=== PATIENT | female | born 1990 | race Caucasian/White ===

== ENCOUNTER → 2017-04-01 | Outpatient (CLI) | payer BC ==
[~2017-04-01] MED LIST: MTR600X PO; OXYC5TAB PO; PRENTAB26 PO
[2017-04-01 14:23] LABS: URINE APPEARANCE CLEAR (CLEAR); URINE BILIRUBIN NEG (NEG); URINE COLOR YELLOW; URINE NITRITE NEG (NEG); URINE PH 6.5 (4.5-7.5); URINE SPECIFIC GRAVITY 1.018 (1.000-1.030); UROBILINOGEN NEG (NEG)
[2017-04-01 14:39] LABS: MANUAL MICROSCOPIC REQUIRED? NO; REVIEW REQ? NO
[2017-04-05 07:27] LABS: CHLAMYDIA TRACH RNA*** NOT DETECTED (NOT DETECTED); GC (NEIS GONORRHOEAE)RNA** NOT DETECTED (NOT DETECTED)
== END | disposition home or self-care (01) ==
LOC: C.LABSPEC 14:32
PROVIDERS: ATTEND Obstetrics & Gynecology
DX: Z34.81 Encounter for supervision of other normal pregnancy, first trimester (principal)

== ENCOUNTER → 2017-05-07 | Outpatient (CLI) | payer BC ==
[2017-05-07 12:22] LABS: BASO % 0.1 %; BASO ABS # 0.01 K/uL (0-0.2); COMPLETE YES; EOS % 0.2 %; HEMATOCRIT 40.9 % (37-47); IG% 0.4 %; LYMPH % 11.3 %; LYMPH ABS # 1.18 K/uL (1.2-3.4); MEAN CELL VOLUME 83.3 fL (80-100); MEAN CORPUSCULAR HEMOGLOBIN 27.9 pg (25-34); MEAN CORPUSCULAR HGB CONC 33.5 g/dl (32-36); MEAN PLATELET VOLUME 10.6 fL (7.4-10.4); MONO % 6.5 %; NEUT % 81.5 %; PLATELET COUNT 301 K/uL (130-400); RED BLOOD COUNT 4.91 M/uL (4.2-5.4)
== END | disposition home or self-care (01) ==
LOC: C.LAB1850 10:35
PROVIDERS: ATTEND Obstetrics & Gynecology
DX: Z34.81 Encounter for supervision of other normal pregnancy, first trimester (principal)

== ENCOUNTER → 2017-06-07 | Outpatient (CLI) | payer BC ==
[2017-06-07 12:47] LABS: GTGD 50 Grams
== END | disposition home or self-care (01) ==
LOC: C.LAB1850 08:42
PROVIDERS: ATTEND Obstetrics & Gynecology
DX: Z34.82 Encounter for supervision of other normal pregnancy, second trimester (principal)

== ENCOUNTER → 2017-08-30 | Outpatient (CLI) | payer BC ==
[2017-08-30 13:18] LABS: HEMATOCRIT 37.3 % (37-47)
[2017-08-30 13:47] LABS: GTGD 50 Grams
[2017-08-30 15:06] LABS: URINE APPEARANCE CLEAR (CLEAR); URINE BILIRUBIN NEG (NEG); URINE COLOR YELLOW; URINE EPITHELIAL CELL AUTO >30 /lpf (0-5); URINE NITRITE NEG (NEG); UROBILINOGEN NEG (NEG)
[2017-08-30 15:10] LABS: MANUAL MICROSCOPIC REQUIRED? NO; REVIEW REQ? NO
== END | disposition home or self-care (01) ==
LOC: C.LAB1850 11:58
PROVIDERS: ATTEND Obstetrics & Gynecology
DX: Z34.83 Encounter for supervision of other normal pregnancy, third trimester (principal); Z3A.00 Weeks of gestation of pregnancy not specified

== ENCOUNTER → 2017-10-20 | Outpatient (CLI) | payer OTHER | END | disposition home or self-care (01) | LOC: C.LABSPEC 16:02 | PROVIDERS: ATTEND Obstetrics & Gynecology | DX: Z34.83 Encounter for supervision of other normal pregnancy, third trimester (principal) ==

== ENCOUNTER 2017-11-12 05:42 | Inpatient (IN) | payer BC, OTHER ==
--- NOTE | 2017-10-29 14:40 | HISTORY & PHYSICAL EXAMINATION ---
DATE OF ADMISSION: 11/12/2017 CHIEF COMPLAINT: Scheduled repeat section. HISTORY OF PRESENT ILLNESS: The patient is a 27-year-old G2, P1-0-0-1 at 39 weeks 2 days gestation with a history of section x1 for failure to dilate. is otherwise uncomplicated. PAST MEDICAL HISTORY: History of diverticulitis, had a flare up after her prior and was treated, has been recommended to continue probiotics in the immediate postsurgical period to ensure normal gut john. PAST SURGICAL HISTORY: Left breast cyst, section, wisdom teeth, and colonoscopy. ALLERGIES: PENICILLIN. The patient has no actual known reaction. Just she thinks a family history. MEDICATIONS: vitamins. SOCIAL HISTORY: Denies tobacco, alcohol or drug use. FAMILY HISTORY: Father with skin cancer and maternal grandfather with diabetes. REVIEW OF SYSTEMS: All reviewed and negative except as described above. PHYSICAL EXAMINATION: VITAL SIGNS: Blood pressure 128/78, weight 200.8. heart rate 138. GENERAL: Awake, alert and oriented x3, no acute distress. CARDIOVASCULAR: Regular rate and rhythm. S1 and S2. No murmurs, gallops or rubs. LUNGS: Clear to auscultation bilaterally. ABDOMEN: Gravid, soft, nontender. EXTREMITIES: No edema, no calf tenderness. LABORATORY DATA: Blood type O positive, rubella immune, screening for infectious disease is negative. Declined cystic fibrosis testing. Early 1-hour glucose test 113. Anatomy ultrasound completed on 07/05/2017 was complete with an echogenic focus in the left ventricle of the heart. Declined quad screen. A 28-week 1-hour Glucola 102. Group B strep negative. ASSESSMENT: 1. A 27-year-old G2, P1-0-0-1 at 39 weeks 2 days. 2. History of section x1, desires repeat. 3. History of diverticulitis. PLAN: Repeat section.
--- NOTE | 2017-10-29 15:33 | PAT Medication Instructions ---
Service Date Oct 29, 2017. Current Home Medication List Multivit/Min/Iron/Fol Ac/Pren ( Vitamin), 1 TAB PO QAM Saccharomyces Boulardii (Probiotic), 1 CAP PO QAM Medication Instructions For Your Scheduled Surgery - Hold the following medications the morning of surgery: Multivit/Min/Iron/Fol Ac/Pren ( Vitamin), 1 TAB PO QAM Saccharomyces Boulardii (Probiotic), 1 CAP PO QAM If you have any questions please call us at [phone] or [phone] or [phone]
[2017-10-29 15:39] LABS: BASO % 0.2 %; BASO ABS # 0.02 K/uL (0-0.2); EOS % 0.3 %; EOS ABS # 0.04 K/uL (0-0.5); HEMATOCRIT 36.2 % (37-47); HEMOGLOBIN 12.3 g/dL (12.0-16.0); IG# 0.13 K/uL (0.00-0.02); LYMPH % 14.1 %; LYMPH ABS # 1.73 K/uL (1.2-3.4); MEAN CELL VOLUME 82.1 fL (80-100); MEAN CORPUSCULAR HEMOGLOBIN 27.9 pg (25-34); MONO % 11.3 %; MONO ABS # 1.38 K/uL (0.11-0.59); NEUT ABS # 8.96 K/uL (1.4-6.5); PLATELET COUNT 171 K/uL (130-400); RED CELL DISTRIBUTION WIDTH CV 13.1 % (11.5-14.5); RED CELL DISTRIBUTION WIDTH SD 39.7 fL (36.4-46.3); WHITE BLOOD COUNT 12.26 K/uL (4.8-10.8)
[2017-11-11 00:30] VITALS: O2SAT 97
[~2017-11-12] VITALS: Ht 165.1 cm; Wt 91.8 kg
[2017-11-12] VITALS (15 sets, daily range): BP systolic 116–139; BP diastolic 72–87; PULSE 56–86; TEMP 36.5–37; O2SAT 95–98; Ht 165.1 cm; Wt 91.8 kg
[~2017-11-12 05:42] MED LIST changes: -MTR600X PO; -OXYC5TAB PO; +SACC250C11 PO
[2017-11-12] MEDS ORDERED: CITRIC ACID/SODIUM CITRATE 15 ML UDC PO SCH (06:00)
[2017-11-12] MEDS ORDERED: CEFAZOLIN IV 2,000 MG in SYRINGE 0 ML IV SCH (06:00)
[2017-11-12] MEDS ORDERED: LACTATED RINGER'S 1000ML 1,000 ML IV SCH ×2 (06:00→09:02)
[2017-11-12 06:12] LABS: BASO % 0.2 %; BASO ABS # 0.03 K/uL (0-0.2); EOS % 0.6 %; EOS ABS # 0.07 K/uL (0-0.5); HEMATOCRIT 37.7 % (37-47); HEMOGLOBIN 12.8 g/dL (12.0-16.0); IG# 0.11 K/uL (0.00-0.02); LYMPH % 23.1 %; LYMPH ABS # 2.85 K/uL (1.2-3.4); MEAN CELL VOLUME 81.3 fL (80-100); MEAN CORPUSCULAR HEMOGLOBIN 27.6 pg (25-34); MEAN PLATELET VOLUME 11.8 fL (7.4-10.4); MONO % 8.7 %; MONO ABS # 1.07 K/uL (0.11-0.59); NEUT % 66.5 %; NEUT ABS # 8.23 K/uL (1.4-6.5); PLATELET COUNT 197 K/uL (130-400); RED CELL DISTRIBUTION WIDTH CV 13.5 % (11.5-14.5); RED CELL DISTRIBUTION WIDTH SD 39.9 fL (36.4-46.3); WHITE BLOOD COUNT 12.36 K/uL (4.8-10.8)
--- NOTE | 2017-11-12 07:11 | History & Physical Bridge Note ---
H&P Re-Evaluation Bridge Note: I have examined the patient, reviewed the History & Physical and in the interval since the performance of the History & Physical I have noted the following changes of clinical significance: No changes noted
[2017-11-12] MEDS ORDERED: MoRPHine SULFATE PF 1 MG/ML 10 ML AMP/VIAL ONE (07:26)
[2017-11-12] MEDS ORDERED: FENTANYL CITRATE INJ 50 MCG/1 ML 2 ML VIAL ONE (07:26)
[2017-11-12] MEDS ORDERED: ONDANSETRON INJ 2 MG/ML 2 ML VIAL ONE (07:26)
[2017-11-12] MEDS ORDERED: KETOROLAC TROMETHAMINE 30 MG/ML VIAL ONE (08:06)
[2017-11-12] MEDS ORDERED: PHENYLEPHRINE 100MCG/ML 5ML SYR ONE (08:06)
[2017-11-12] MEDS ORDERED: OXYTOCIN INJ 10 UNITS/ML VIAL ONE ×4 (08:06→08:34)
--- NOTE | 2017-11-12 08:28 | [facility] Post Operative Brief Note ---
Immediate Operative Summary Operative Date Nov 12, 2017. Pre-Operative Diagnosis Term iup, prior section, desires repeat section Post-Operative Diagnosis same Procedure(s) Performed Repeat Low Transverse Section Surgeon Cynthia Project Engineering Manager Surgeon(s) Vernon Estimated Blood Loss 600 Findings See Below (viable female apgars 8,9; normal uterus tubes and ovaries bilateral) see above Fluids (cc crystalloids) 1600 Specimens placenta, cord blood Drains rivero Anesthesia Type Spinal Complication(s) none Disposition Accompanied Pt To Recover: no Disposition: L&D
[2017-11-12] MEDS ORDERED: NALOXONE HCL INJ 1 MG in SODIUM CHLORIDE 0.9% 1000ML 1,000 ML IV PRN (08:56)
[2017-11-12] MEDS ORDERED: NALOXONE HCL INJ 0.08 MG in SYRINGE 1.8 ML IV PRN (08:56)
[2017-11-12] MEDS ORDERED: SODIUM CHLORIDE 0.9% 1000ML 1,000 ML IV PRN (08:56)
[2017-11-12] MEDS ORDERED: LACTATED RINGER'S 1000ML 500 ML IV PRN (08:56)
[2017-11-12] MEDS ORDERED: EpHEDrine SULFATE INJ 50 MG/ML AMP IV PRN (09:00)
[2017-11-12] MEDS ORDERED: DC INTRASPINAL MORPHINE SCH (09:00)
[2017-11-12] MEDS ORDERED: KETOROLAC TROMETHAMINE 30 MG/ML VIAL IV. PRN (09:00)
[2017-11-12] MEDS ORDERED: NO NARCOTICS OR SEDATIVES SCH (09:00)
[2017-11-12] MEDS ORDERED: MoRPHine SULFATE PF 1 MG/ML 10 ML AMP/VIAL EPI PRN (09:00)
[2017-11-12] MEDS ORDERED: NALBUPHINE HCL INJ 10 MG/ML AMP IV PRN (09:00)
[2017-11-12] MEDS ORDERED: PROMETHAZINE HCL INJ 6.25 MG in SODIUM CHLORIDE 0.9% 50ML 50 ML IV PRN (09:00)
[2017-11-12] MEDS ORDERED: ONDANSETRON INJ 2 MG/ML 2 ML VIAL IV PRN (09:00)
[2017-11-12] MEDS ORDERED: MoRPHine SULFATE 2 MG/ML CARP IV PRN (09:00)
[2017-11-12] MEDS ORDERED: NALOXONE HCL 0.4 MG/1 ML VIAL/CARP IV PRN (09:00)
[2017-11-12] MEDS ORDERED: DiphenhydrAMINE HCL 50 MG/ML VIAL IV PRN ×2 (09:00)
[2017-11-12] MEDS ORDERED: MEPERIDINE HCL 25 MG/ML CARP IV PRN (09:00)
--- NOTE | 2017-11-12 09:11 | Discharge Instructions ---
Discharge Instructions Date of Service Nov 12, 2017. Admission Reason for Admission: Previous Section, Ante Discharge Discharge Diagnosis / Problem: Repeat Section Discharge Goals Goal(s): Routine recovery after Medications Continue Dispensed Medications: supercream, dermaplast, tucks, lansinoh Activity Recommendations Activity Limitations: per Instructions/Follow-up section . Instructions / Follow-Up Instructions / Follow-Up ACTIVITY RECOMMENDATIONS: * Gradual return to full activity over the next 2-3 weeks. * No lifting - nothing heavier than baby over the next 2-3 weeks. * Do not engage in vigorous exercise, sexual activity or sports until cleared by your physician. * Do not drive or operate any motorized equipment until cleared by your physician. * You may shower/bathe daily. MEDICATIONS: For discomfort or pain, you may use Acetaminophen (Tylenol), Ibuprofen (Advil), or Naproxen (Aleve) following the package directions. For constipation you may use Colace following the package directions. BREAST CARE: If you are not breast feeding: * Wear a supportive bra 24 hours a day for one to two weeks. * Avoid stimulating your breasts and nipples as much as possible during the first few weeks after delivery. * When taking a shower, have the warm water hit your back, not breasts. * When your breasts feel full, apply ice packs. Usually three to four times a day helps ease the discomfort. * Take a mild pain medication (Tylenol / Motrin) when you are uncomfortable. If breast feeding: * Use breast milk to lubricate nipples. Lansinoh cream may be used for sore nipples. You do not need to remove cream prior to breast feeding. If using a different brand of cream, check the label for directions regarding removal of cream prior to nursing. * Wear a supportive bra. * If having problems with breasts or breast feeding, call a application packaging consultant or your health care provider. SPECIAL CARE INSTRUCTIONS: When you are discharged from the hospital, it is important for you to follow the instructions listed below: * During the first week at home, you should be able to care for yourself and your baby. In addition, the usual light household activities are encouraged. * Limit your activities to the way you feel. Do not try to clean the house or move furniture. Be sensible. * If you actively engage in sports and have done so up until the time of your delivery, you may resume these activities as soon as you feel able. This may take up to one month or even longer. Use good judgment. * Continue to take your vitamins for at least six weeks after the of your baby. * Your diet need not be limited unless you were on a special diet before your delivery. Breast-feeding mothers need around 2500 calories per day and at least 64-80 ounces of fluid per day (8 to 10 glasses). * You should eat foods from the four major food groups. Crash diets or fad diets are to be avoided. Eating lean meats, fresh fruits and vegetables, low-fat dairy products, high fiber foods and a regular exercise program, will help you get back to your pre- weight without putting your health at risk. * Constipation is sometimes a problem after delivery. Take a mild laxative as needed. If breast feeding, Milk of Magnesia is acceptable to use. You may use a suppository or Fleets enema. * A daily shower or tub bath is suggested. Wash incision daily with warm soapy water and pat dry. It doesn't need to be covered unless drainage is present. * A bloody vaginal discharge will usually continue until around four weeks . A small amount of bleeding may continue for as long as six weeks. Vaginal discharge changes from the bright red bleeding after delivery to pink then brownish and finally yellowish-pink before becoming white and disappearing. * Bleeding may increase with activity. Your first period may come in 4-8 weeks. If you are breast feeding, your period may be delayed even longer. * Eland (sex) can begin whenever both you and your partner feel comfortable and do not have any form of genital infection. It is recommended that you wait at least six weeks for internal and external healing to occur. If you have questions, please talk to your health care practitioner. A condom should be used to prevent infection and . * Foreplay, gentle intercourse and lubrication is very important the first several times to prevent pain. A water-based lubricant such as K-Y jelly or Astroglide may be used. * If you have RH negative blood and your baby is RH positive, you will receive RHOGAM by injection prior to discharge. The nurse will give you a card to keep with you that has the date and place that you received RHOGAM after delivery. * During your care, you had a Rubella screen done to check for the presence of rubella antibodies in your blood. If your test was negative, you will receive a Rubella vaccine prior to discharge. This vaccine may cause a fever, soreness at the injection site and flu-like symptoms. If these symptoms persist, notify your health care practitioner. is not advised for one month after a Rubella vaccine. * Verbalizes understanding of car seat law as reviewed with patient nursing. * Car Seat hand-out given and reviewed with patient by nursing. * Shaken baby information reviewed with patient by nursing. Call you doctor if: * Heavy bleeding (saturating several pads an hour) or passing clots the size of your fist. * A fever >101 degrees F (38.3 degrees C) on two occasions four hours apart and /or chills. * Unusual pain in the pelvic or vaginal areas. * Call the doctor for any increased redness, drainage or swelling around the incision and any pain unrelieved by prescribed pain medication. * "Baby Blues" lasting longer than two weeks. If you have any questions or concerns, call your health care practitioner at . FOLLOW UP VISIT: * Please call the office at to schedule a 6 week examination. It is important you keep this appointment. It is important for you to make arrangements for either yearly or twice yearly check-ups thereafter. Current Hospital Diet Patient's current hospital diet: Discharge Diet Recommended Diet: Regular Diet Procedures Procedures Performed: Repeat Low Transverse Section Pending Studies Studies pending at discharge: no Medical Emergencies . Who to Call and When: Medical Emergencies: If at any time you feel your situation is an emergency, please call [phone] immediately. . Non-Emergent Contact Non-Emergency issues call your: Primary Care Provider . . "Provider Documentation" section prepared by Artemio David. . VTE Core Measure Inpt VTE Proph given/why not?: SCD's
[2017-11-12] MEDS ORDERED: MAGNESIUM HYDROXIDE SUSP 30 ML UDC PO PRN (09:15)
[2017-11-12] MEDS ORDERED: SUPERCREAM 0.870 % 15GM JAR EXT PRN (09:15)
[2017-11-12] MEDS ORDERED: HYDROCORTISONE ACETATE 25 MG SUPP PR PRN (09:15)
[2017-11-12] MEDS ORDERED: BENZOCAINE 20% AER SPR 82.5 GM CAN EXT PRN (09:15)
[2017-11-12] MEDS ORDERED: DIPHTHERIA/TETANUS/PERTUSSIS 0.5 ML SYR/VIAL IM. ONE (09:15)
[2017-11-12] MEDS ORDERED: LANOLIN OINT EXT PRN (09:15)
[2017-11-12] MEDS ORDERED: SENNA 8.6 MG TAB PO PRN (09:15)
--- NOTE | 2017-11-12 09:23 | OPERATIVE REPORT ---
DATE OF OPERATION: 11/12/2017 PREOPERATIVE DIAGNOSES: 1. Term intrauterine . 2. History of section x1. 3. Desires repeat section. 4. History of diverticulitis. POSTOPERATIVE DIAGNOSES: Same. PROCEDURES PERFORMED: Repeat low transverse section. SURGEON: Penny Marie DO. ACUTE CARE PHYSICIAN: Ani Junior MD. ESTIMATED BLOOD LOSS: 600 Ml. FINDINGS: Viable female with Apgars 8 and 9. Uterus, tubes, and ovaries appeared normal. FLUIDS: 1600 mL. SPECIMENS: Placenta and cord blood. DRAINS: Ordoñez, clear yellow and catheter at conclusion of case. ANESTHESIA: Spinal. COMPLICATIONS: None. DISPOSITION: Stable and good to labor and delivery. INDICATIONS FOR PROCEDURE: The patient is a 27-year-old G2, P1-0-0-1 at term with history of section x1 who desires repeat. DESCRIPTION OF PROCEDURE: The patient was seen in the preoperative holding area where risks, benefits, alternatives to surgery were reviewed. She elected to proceed with the case. She had previously signed an informed consent under no duress in the office. All questions were answered. The patient was taken to the operating room where spinal anesthesia was administered. She was then placed in the supine position with a leftward tilt. A Ordoñez catheter was placed. She was prepared and draped in the usual sterile fashion. A timeout was confirmed. Adequate anesthesia was confirmed. A Pfannenstiel skin incision was made with a scalpel across the previous incision site. This was carried through to the underlying layer of fascia in both sharp and blunt dissection. The fascia was nicked at midline and extended bilaterally sharply and bluntly. The superior aspect of the fascial incision was grasped with Agusto clamps x2, elevated off the underlying rectus abdominis muscles and dissected bluntly and sharply. In a similar fashion, the inferior aspect of the incision was dissected. The rectus abdominis muscles were at midline and the peritoneum was entered bluntly digitally. Bladder blade was placed. This incision was extended bilaterally with blunt dissection. The bladder flap was taken down with Metzenbaum scissors. A new scalpel was used for the uterine incision. This incision was extended bilaterally in a low transverse fashion. The infant was delivered from a cephalic presentation. The head delivered, followed by bilateral shoulders and body. No nuchal cord was noted. A spontaneous cry was heard on the field. The cord was doubly clamped and cut. The baby was handed off to the waiting pediatrics team. A segment of cord was retained for cord gases. Cord blood was obtained. The placenta was delivered spontaneously intact with a 3-vessel cord. The uterus was exteriorized and cleaned of all clots and debris. The hysterotomy incision was reapproximated using 0 Vicryl in a running locked stitch. A second layer of the same suture was used to imbricate the incision. The posterior uterus was evaluated and found to be normal. The uterus was placed back in the abdomen and multiple [id number]-cb-[id number] stitches were used to obtain excellent hemostasis at the center of the hysterotomy. Excellent hemostasis was observed. The fascial incision was reapproximated using 0 Vicryl in a running stitch. The subcuticular tissue was irrigated and then reapproximated using 2-0 plain gut suture in a running stitch. The skin incision was reapproximated using 4-0 Monocryl in a running subcuticular stitch. Steri-Strips and a bandage were applied. The patient was taken to the recovery area in stable and good condition. I attest to the content of the Intraoperative Record and any orders documented therein. Any exception s are noted below.
[2017-11-12] MEDS ORDERED: OXYTOCIN INJ 20 UNITS in LACTATED RINGER'S 1000ML 1,000 ML IV SCH (10:00)
--- NOTE | 2017-11-12 10:54 | Anesthesiology Progress Note ---
Anesthesia Post Op Note Date & Time Nov 12, 2017 at 10:54 Notes Mental Status: alert / awake / arousable, participated in evaluation Pt Amnestic to Procedure: Yes Nausea / Vomiting: adequately controlled Pain: adequately controlled Airway Patency, RR, SpO2: stable & adequate BP & HR: stable & adequate Hydration State: stable & adequate Neuraxial Anesthesia: was administered, sensory block is resolving Anesthetic Complications: no major complications apparent
[2017-11-12] MEDS: IBUPROFEN 600 MG TAB PO PRN (12:03)
[2017-11-12] MEDS: SIMETHICONE 80 MG CHEW PO SCH ×2 (12:03→19:58)
[2017-11-12] MEDS: DOCUSATE SODIUM 100 MG CAP PO SCH (19:58)
[2017-11-13] VITALS (7 sets, daily range): BP systolic 103–123; BP diastolic 63–83; PULSE 62–77; TEMP 36.5–36.8; O2SAT 95–96
[2017-11-13] MEDS ORDERED: ZOLPIDEM TARTRATE 5 MG TAB PO PRN (02:00)
[2017-11-13] MEDS ORDERED: DiphenhydrAMINE HCL 50 MG/ML VIAL IV PRN (02:00)
[2017-11-13] MEDS ORDERED: ONDANSETRON INJ 2 MG/ML 2 ML VIAL IV PRN (02:00)
[2017-11-13] MEDS ORDERED: KETOROLAC TROMETHAMINE 30 MG/ML VIAL IV. PRN (02:00)
[2017-11-13] MEDS: OXYCODONE/ACETAMINOPHEN 5-325 TAB PO PRN ×6 (04:13→20:45)
[2017-11-13] MEDS: IBUPROFEN 600 MG TAB PO PRN ×5 (04:14→20:45)
--- NOTE | 2017-11-13 06:16 | Progress Note ---
Subjective Nov 13, 2017. Subjective conversation w/ patient (Patient seen and examined at bedside) Ambulation: ambulating normally Voiding: no voiding problems (rivero cath just removed - awaiting first void) Passing Gas: Yes Diet Tolerance: Regular Diet Lochia: Moderate Feeding Type: Breast Feeding Pain: 6/10 pain with ambulating on left side of incision and back Comment: Pain improved w/analgesia Review of Systems Constitutional: + problem reported (headache), No fever, No chills, No sweats Respiratory: No cough, No shortness of breath Cardiac: + problem reported ("heavy chest" - improving) Breast: No breast pain Abdomen: No pain, No nausea, No vomiting Female : No dysuria Also reports pain in calves - left worse than right Objective Vital Signs Date Time Temp Pulse Resp B/P (MAP) Pulse Ox O2 Delivery O2 Flow Rate FiO2 11/13/17 03:45 36.6 62 16 111/76 (88) 95 Room Air 11/13/17 02:23 16 96 11/13/17 01:28 16 96 11/12/17 23:40 Room Air 11/12/17 23:40 36.8 69 18 116/72 (87) 95 Room Air 11/12/17 23:40 18 95 11/12/17 23:10 17 96 11/12/17 22:00 18 95 11/12/17 21:00 18 97 11/12/17 20:00 97 Room Air 11/12/17 20:00 36.9 68 18 125/81 (96) 97 Room Air 11/12/17 20:00 18 97 11/12/17 19:00 18 97 11/12/17 18:15 18 97 11/12/17 17:15 18 96 11/12/17 16:15 16 95 11/12/17 16:05 97 Room Air 11/12/17 15:15 16 95 11/12/17 14:30 16 98 11/12/17 13:30 15 98 11/12/17 12:31 16 97 11/12/17 11:30 98 Room Air 11/12/17 11:30 16 98 11/12/17 11:30 36.5 56 16 139/87 (104) 98 Room Air Physical Exam General Appearance: WELL-APPEARING, WD/WN, NO APPARENT DISTRESS Respiratory/Chest: chest non-tender, lungs clear, normal breath sounds, no respiratory distress, no accessory muscle use Cardiovascular: regular rate, rhythm, no edema, no gallop, no murmur Abdomen: normal bowel sounds, non tender, soft Fundus: Firm, Tender, Relation to Umbilicus (1 below u) Incision Description: Clean, Dry & Intact Extremities: normal inspection, no pedal edema, + pertinent finding (right calf mildly tender to palpation, no erythema, no swelling, no warmth) Laboratory Results Last 24 Hours Test 11/13/17 06:00 Medications Current Inpatient Medications Medications (Trade) Dose Ordered Sig/Trina Route Start Time Stop Time Status Last Admin Dose Admin Morphine Sulfate (MoRPHine SULFATE INJ) 2 mg Q2H PRN IV 11/12/17 09:00 11/26/17 02:00 Oxytocin 20 units/ Lactated Ringer's 1,002 ml @ 125 mls/hr Q8H1M IV 11/12/17 10:00 12/12/17 09:59 11/12/17 10:07 125 MLS/HR Lactated Ringer's 1,000 ml @ 125 mls/hr Q8H IV 11/12/17 09:02 12/12/17 09:01 Ketorolac Tromethamine (Toradol Inj) 30 mg Q6H PRN IV. 11/13/17 02:00 11/18/17 01:59 Oxycodone/ Acetaminophen (Percocet 5-325mg Tab) 1 tab Q4H PRN PO 11/13/17 02:00 11/27/17 01:59 11/13/17 04:13 1 TAB Oxycodone/ Acetaminophen (Percocet 5-325mg Tab) 2 tab Q4H PRN PO 11/13/17 02:00 11/27/17 01:59 Ibuprofen (Motrin Tab) 600 mg Q4H PRN PO 11/12/17 09:15 12/12/17 09:14 11/13/17 04:14 600 MG Ondansetron HCl (Zofran Inj) 4 mg Q4H PRN IV 11/13/17 02:00 12/13/17 01:59 Bisacodyl (Dulcolax Tab) 5 mg HS ONCE PO 11/13/17 22:00 11/13/17 22:01 Bisacodyl (Dulcolax Supp) 10 mg PRN PRN OH 11/14/17 09:15 12/14/17 09:14 Docusate Sodium (coLACE CAP) 100 mg BID PO 11/12/17 20:00 12/12/17 19:59 11/12/17 19:58 100 MG Magnesium Hydroxide (Milk Of Magnesia Susp) 30 ml HS PRN PO 11/12/17 09:15 12/12/17 09:14 Cocaine HCl (Supercream 0.870% Cr) BID PRN EXT 11/12/17 09:15 11/26/17 09:14 Lanolin (Lanolin Oint) PRN PRN EXT 11/12/17 09:15 12/12/17 09:14 Hydrocortisone Acetate (Anusol Hc Supp) 25 mg BID PRN OH 11/12/17 09:15 12/12/17 09:14 Benzocaine (Dermoplast Aero Spr) 1 appln PRN PRN EXT 11/12/17 09:15 12/12/17 09:14 Zolpidem Tartrate (Ambien Tab) 5 mg HSZ PRN PO 11/13/17 02:00 12/13/17 01:59 Simethicone (Mylicon Chew Tab) 80 mg QID PO 11/12/17 12:00 12/12/17 12:59 11/12/17 19:58 80 MG Diphenhydramine HCl (Benadryl Cap) 25 mg QID PRN PO 11/12/17 09:15 12/12/17 09:14 Diphenhydramine HCl (Benadryl Inj) 25 mg QID PRN IV 11/13/17 02:00 12/13/17 01:59 Senna (Senokot Tab) 17.2 mg HS PRN PO 11/12/17 09:15 12/12/17 09:14 Prenat Multivit/ [place]/Iron/Folic Ac ( Vitamin Tab) 1 tab QAM PO 11/13/17 08:00 12/13/17 07:59 Saccharomyces Boulardii (Florastor Cap) 250 mg DAILY PO 11/13/17 08:00 12/13/17 07:59 Assessment and Plan Post-Op Day#: 1 Continue Routine Care: 27 year old [id number] s/p elective repeat day 1 - O+, rubella immune, GBS -ve - patient doing well clinically - continue encouraging ambulation, and analgesia prn - monitor lochia - continue SCDs for DVT prophylaxis - vitals reviewed and wnl - Hgb 12.8 on arrival, recheck ordered for today Resident Physician Supervision Note: I was present with Dr. David during the history and exam. I discussed the case with the resident and agree with the findings and plan as documented in the note. Any exceptions or clarifications are listed here: POD#1 s/p repeat c- section, doing well. Rivero out. Goals: ambulate, increase PO. Documented By: Penny Marie Resident Tracking Resident Involvement: Resident Care Provided Care Provided: OB Delivery
[2017-11-13 07:32] LABS: BASO % 0.1 %; BASO ABS # 0.01 K/uL (0-0.2); EOS % 0.3 %; EOS ABS # 0.03 K/uL (0-0.5); HEMATOCRIT 35.4 % (37-47); HEMOGLOBIN 11.8 g/dL (12.0-16.0); IG# 0.04 K/uL (0.00-0.02); LYMPH % 12.8 %; LYMPH ABS # 1.38 K/uL (1.2-3.4); MEAN CELL VOLUME 81.2 fL (80-100); MEAN CORPUSCULAR HEMOGLOBIN 27.1 pg (25-34); MEAN CORPUSCULAR HGB CONC 33.3 g/dl (32-36); MONO % 8.6 %; MONO ABS # 0.93 K/uL (0.11-0.59); NEUT % 77.8 %; NEUT ABS # 8.42 K/uL (1.4-6.5); PLATELET COUNT 160 K/uL (130-400); RED CELL DISTRIBUTION WIDTH CV 13.4 % (11.5-14.5); RED CELL DISTRIBUTION WIDTH SD 39.9 fL (36.4-46.3); WHITE BLOOD COUNT 10.81 K/uL (4.8-10.8)
[2017-11-13] MEDS: SACCHAROMYCES BOUL (FLORASTOR) 250 MG CAP PO SCH (08:35)
[2017-11-13] MEDS: PRENATAL VITAMIN TAB PO SCH (08:35)
[2017-11-13] MEDS: DOCUSATE SODIUM 100 MG CAP PO SCH ×2 (08:35→20:44)
[2017-11-13] MEDS: SIMETHICONE 80 MG CHEW PO SCH ×4 (08:35→20:45)
[2017-11-13] MEDS ORDERED: BISACODYL 5 MG TABEC PO ONE (22:00)
[2017-11-14] MEDS: OXYCODONE/ACETAMINOPHEN 5-325 TAB PO PRN ×2 (06:23→10:31)
[2017-11-14] MEDS: IBUPROFEN 600 MG TAB PO PRN ×2 (06:24→10:32)
[2017-11-14 07:51] LABS: HEMATOCRIT 36.3 % (37-47); HEMOGLOBIN 12.1 g/dL (12.0-16.0)
[2017-11-14] MEDS: PRENATAL VITAMIN TAB PO SCH (08:24)
[2017-11-14] MEDS: DOCUSATE SODIUM 100 MG CAP PO SCH (08:25)
[2017-11-14] MEDS: SACCHAROMYCES BOUL (FLORASTOR) 250 MG CAP PO SCH (08:25)
[2017-11-14] MEDS: SIMETHICONE 80 MG CHEW PO SCH (08:25)
[2017-11-14 08:35] VITALS: BP 128/77; PULSE 76; TEMP 36.4
[2017-11-14] MEDS ORDERED: BISACODYL 10 MG SUPP PR PRN (09:15)
--- NOTE | 2017-11-14 09:29 | Progress Note ---
Subjective Nov 14, 2017. Subjective conversation w/ patient, physical exam Ambulation: ambulating normally Voiding: no voiding problems Diet Tolerance: Regular Diet Lochia: Small Feeding Type: Bottle Feeding Pain: good pain control, having some left sided tenderness Comment: has h/o diverticulitis and does sometimes present on left side with tenderness but she is unsure if just sore from surgery as well. not as severe as she has had in past with her diverticulitis presentation. Objective Vital Signs Date Time Temp Pulse Resp B/P (MAP) Pulse Ox O2 Delivery O2 Flow Rate FiO2 11/14/17 08:35 36.4 76 18 128/77 (94) Room Air 11/14/17 08:35 Room Air 11/13/17 23:15 36.5 68 16 103/63 (76) Room Air 11/13/17 23:15 Room Air 11/13/17 19:00 Room Air 11/13/17 19:00 36.6 77 20 122/77 (92) Room Air 11/13/17 15:50 36.8 72 20 123/83 (96) Physical Exam General Appearance: WELL-APPEARING, WD/WN, NO APPARENT DISTRESS Respiratory/Chest: lungs clear Cardiovascular: regular rate, rhythm Abdomen: non tender, soft Fundus: Firm, Relation to Umbilicus (3 down) Incision Description: Clean, Dry & Intact (with steris) Extremities: non-tender Laboratory Results Last 24 Hours Test 11/14/17 07:16 Hemoglobin 12.1 g/dL Hematocrit 36.3 % Assessment and Plan Post-Op Day#: 2 Continue Routine Care: stable, routine care. desires d/c home. instructions reviewed. f/u 6 wks. plan po percocet and motrin and transition to tylenol. discussed her diverticulitis history. she is sure she wants to go home and hope that does not present. she has been dealing with diagnoses since she was 23yo.
[2017-11-14] MEDS ORDERED: OXYC-57 PO (09:30)
[2017-11-14] MEDS ORDERED: MTR600X PO (09:30)
[2017-11-14 11:18] VITALS: BP_DIAS 77; PULSE 76; TEMP 36.4
== END 2017-11-14 11:30 | disposition home or self-care (01) | DRG 766 ==
LOC: C.LD 05:42 → EDSTATUS 09:00 → C.OBG 11:29
PROVIDERS: ADMIT Obstetrics & Gynecology; ATTEND Obstetrics & Gynecology
PROC: 10D00Z1 Extraction of Products of Conception, Low, Open Approach (ICD-10-PCS; principal; 2017-11-12 07:30)
DX: O34.219 Maternal care for unspecified type scar from previous cesarean delivery (principal); Z37.0 Single live birth; Z3A.39 39 weeks gestation of pregnancy

== ENCOUNTER → 2017-12-30 | Outpatient (CLI) | payer OTHER ==
[~2017-12-30] MED LIST changes: +MTR600X PO; +OXYC-57 PO; -SACC250C11 PO
== END | disposition home or self-care (01) ==
LOC: C.PAPS 07:59
PROVIDERS: ATTEND Obstetrics & Gynecology
DX: Z39.2 Encounter for routine postpartum follow-up (principal)

== ENCOUNTER 2019-07-10 07:23 | Inpatient (IN) ==
--- NOTE | 2019-07-07 14:41 | History & Physical Report ---
Date of Service July 07, 2019 Here to review upcoming 3rd C/S Assessment & Plan (1) Previous delivery affecting , antepartum: Repeat section. The patient was counseled to the nature of the procedure including alternatives such as labor. Risks were discussed including bleeding infection injury to bowel bladder ureter vessels and even baby. The risks of internal organ injury were discussed as being higher with prior sections. Deep Vein Thrombosis, pulmonary embolus and breakdown of the incision discussed. Deep vein thrombosis pulmonary embolus hernia and failure of the incision to heal were discussed Patient verbalized understanding of this and was given ample time to ask questions declines tubal also, never had an actual reaction to PCN, her sibling did and she just avoided the med History of Present Illness Primary Care Provider: Castro Carlton DO Allergies Allergy/AdvReac Type Severity Reaction Status Date / Time Penicillins Allergy Unknown UNSURE OF Verified 07/07/19 14:23 RXN, WAS TOLD BY FAMILY Home Medications Home Medications Medication Instructions Recorded Confirmed Type 1 tab PO QAM 05/08/19 07/07/19 History vitamin,calcium,pjikftfs-qawz-dcezn acid tablet jhfcpoum-keschjnaa-ecby pr con 1 cap PO QAM 07/05/19 07/07/19 History [Ultra Shellie Plus] Patient History Medical History Diverticular disease History of ovarian cyst History of seizure AT AGE 9 - NEVER HAD ANOTHER Hx of wisdom tooth extraction Surgical History History of colonoscopy Hx of section X2 Family History Mother Thyroid disease Sister Thyroid disease Social History Preferred Language: Arabic Communication Ability: Effective Beliefs That Will Affect Care: None marital status: Current Living Situation: Family Feels Safe at Home: Yes Smoking Status: Never smoker Second Hand Exposure: No ; Hx Alcohol Use: No Hx Substance Use: No Physical Exam Constitutional: WD/WN, vitals as above Respiratory: normal respiratory effort, lungs clear to auscultation Cardiovascular: RRR, no murmur, no edema Gastrointestinal (Abdomen): normal bowel sounds, soft, nontender, no hepatosplenomegaly
[~2019-07-10 07:23] MED LIST changes: +CEFAZOLIN 2000MG 2,000 MG/15 ML SYR IV SCH; +CITRIC ACID/SODIUM CITRATE 15 ML UDC PO SCH; -MTR600X PO; -OXYC-57 PO; -PRENTAB26 PO
[2019-07-10] MEDS ORDERED: LACTATED RINGER'S 1,000 ML IV SCH ×2 (07:30→08:30)
--- NOTE | 2019-07-10 07:37 | History & Physical Bridge Note ---
Date of Service July 10, 2019 History & Physical Bridge Note I have examined the patient, reviewed the History & Physical and in the interval since the performance of the History & Physical I have noted the following changes of clinical significance: no changes noted
[2019-07-10 07:56] LABS: Basophils # (auto) 0.01 K/uL (0-0.2); Basophils % (auto) 0.1 %; Eosinophils # (auto) 0.06 K/uL (0-0.5); Eosinophils % (auto) 0.5 %; Hemoglobin 14.4 g/dL (12.0-16.0); Immature Granulocytes # (auto) 0.07 K/uL (0.00-0.02); Immature Granulocytes % (auto) 0.5 %; Lymphocytes % (auto) 15.1 %; Mean Corpuscular Hemoglobin 30.3 pg (25-34); Mean Corpuscular Volume 86.1 fL (80-100); Mean Platelet Volume 11.6 fL (7.4-10.4); Monocytes # (auto) 1.18 K/uL (0.11-0.59); Monocytes % (auto) 8.9 %; Neutrophils # (auto) 9.94 K/uL (1.4-6.5); Neutrophils % (auto) 74.9 %; Platelet Count 200 K/uL (130-400); RDW Coefficient of Variation 12.9 % (11.5-14.5); RDW Standard Deviation 40.6 fL (36.4-46.3); Red Blood Count 4.76 M/uL (4.2-5.4); White Blood Count 13.26 K/uL (4.8-10.8)
[2019-07-10 08:02] LABS: Mean Corpuscular Hgb Conc 35.1 g/dL (32-36)
--- NOTE | 2019-07-10 09:24 | Anesthesiology Consultation ---
Date of Service July 10, 2019 Assessment & Plan (1) Encounter for pre-operative examination: Chart Review Chart Review: Acceptable Risk for Surgery and Patient NOT seen in Pre Admission Testing Consults Requested none ASA ASA2 Proposed Anesthesia Anesthesia Type: Spinal Risk / Benefits Reviewed With: PT / POA / Parent / Guardian, Accepts Plan and Informed Consent Obtained History Surgery Operation Date: 07/10/19 09:00 Proposed Procedures p Section in LD - J. Mac Starr MD, FACOG Height/Weight Height: 5 ft 5 in Weight: 95.254 kg Allergies Allergy/AdvReac Type Severity Reaction Status Date / Time Penicillins Allergy Unknown UNSURE OF Verified 07/07/19 14:23 RXN, WAS TOLD BY FAMILY Medications Home Medications Medication Instructions Recorded Confirmed Last Taken 1 tab PO QAM 05/08/19 07/10/19 07/09/19 07:30 vitamin,calcium,cneqjubm-sqdg-bjgit acid tablet qqilneqo-zhtsieaau-ntcd pr con 2 cap PO QAM 07/05/19 07/10/19 07/09/19 07:30 [Ultra Shellie Plus] NPO Date Last Intake of Fluids: 07/09/19 Time Last Intake of Fluids: 21:30 Date Last Intake of Solids: 07/09/19 Time Last Intake of Solids: 20:00 Past Medical History Medical History Diverticular disease Diverticulosis History of seizure AT AGE 9 - NEVER HAD ANOTHER Hx of wisdom tooth extraction History of ovarian cyst Exercise / Class Metabolic Activity II 4-5 Yardwork/Stairs/Walk up hill Negative for chest pain or shortness of breath. Past Family History Family History Mother Thyroid disease Sister Thyroid disease Past Surgical History Surgical History History of colonoscopy Hx of section X2 Past Anesthesia History No Hx of Anesthesia Complications History of PONV No Hx of PONV and Hx of Motion Sickness (Occasional) Social History Smoking Status: Never smoker Do You Dip or Chew Tobacco: No Hx Alcohol Use: No Hx Substance Use: No Review of Systems Patient denies history of abnormal bleeding or bleeding disorder. Patient denies active use of anticoagulants other than low dose aspirin. History of back pain and hp pain Patient denies history of abnormal bleeding or bleeding disorder. Patient denies active use of anticoagulants other than low dose aspirin. Patient denies numbness, tingling or weakness in lower extremities. (Occasional numbness in thighs and feet) Physical Exam Vital Signs Last Vital Signs Temp 36.3 C L 07/10/19 08:03 Pulse 85 07/10/19 07:34 Resp 20 07/10/19 08:03 BP 135/79 07/10/19 07:34 Constitutional not obese gravid uterus ENMT Mouth: no TMJ abnormality and oral opening not small Thyromental Distance: > or= 3.5 Finger Breadths Mallampati Class: III Neck normal visual inspection; neck extension not limited Respiratory normal respiratory effort Auscultation: lungs clear to auscultation bilaterally Cardiovascular Rate/Rhythm: regular rate and regular rhythm Heart Sounds: no murmur Neurologic moves all extremities Motor/Sensory: no sensory deficit Psychiatric Orientation: alert and oriented x 3 Testing Laboratory Results 07/10/19 07:44 Blood Type O Positive 07/10/19 07:44 Antibody Screen NEGATIVE 07/10/19 07:44
[2019-07-10] MEDS ORDERED: fentaNYL citrate 100 MCG/2 ML VIAL ONE (09:39)
[2019-07-10] MEDS ORDERED: MoRPHine SULFATE PF 1 MG/ML 10 ML AMP/VIAL ONE (09:39)
[2019-07-10] MEDS ORDERED: ONDANSETRON INJ 2 MG/ML 2 ML VIAL ONE ×2 (09:44→10:27)
[2019-07-10] MEDS ORDERED: OXYTOCIN 10 UNITS/ML VIAL ONE (09:45)
--- NOTE | 2019-07-10 11:10 | Operative Report ---
PG Post Operative Report Pre & Post Diagnosis Operation Date: 07/10/19 09:00 Pre-Op Diagnosis: History of Section;Desires Repeat Post-Op Diagnosis: Same; Delivery of a live male child at 1039 Procedure Operation Date: 07/10/19 09:00 Actual Procedures p Section in LD - Sussy Starr MD, FACOG Surgeon Sussy Starr MD, FACOG Clinic Nurse Dr. Early Estimated Blood Loss 400 Findings Consistent with Post-Op Diagnosis Specimens Cord gases, cord blood Description of Procedure Patient given a spinal anesthetic by anesthesia IV antibiotics given preoperatively Ordoñez catheter inserted timeout performed pickups with teeth used to test the incision and found to be adequate block Scalpel used to make a Pfannenstiel incision over the prior incision dissecting down through fat then through fascia in the midline fascia then cut laterally with the curved Osman scissors then fascia released superiorly and inferiorly with the curved osman from the rectus muscle. Rectus muscle split peritoneal cavity entered in a superior location opening enlarged to allow exposure there were some omental adhesions at the top of the incision area that was dissected down carefully with the electrosurgical unit bladder retractor placed Metzenbaums used to dissect away the bladder flap. Bladder retractor readjusted it should be noted that the lower segment was very thin only a very thin layer of uterus over the membranes was noted and incision with the scalpel was made entry was then bluntly into the uterine cavity fluid was clear baby in a vertex position baby delivered by flexion of the head and then pressure from the bilingual administrative assistant no excessive force easy delivery live vigorous cord clamped and cut cord gases obtained cord blood obtained placenta removed IV Pitocin started we exteriorized the uterus all placenta was ensured to be removed uterine tone improved Uterus was closed in a 2 layer Monocryl 0 Monocryl layer closure should be noted the lower segment was very thin but we ensured good full-thickness bites and avoided bladder once both layers were closed after generous irrigation and suction of the cul-de-sac and bladder flap regions uterus was placed back in the peritoneal cavity hemostasis found to be adequate rectus muscles inspected and found to be hemostatic fascia closed with 0 Vicryl subcutaneous fat irrigated and closed with 3-0 Vicryl 4-0 subcuticular Monocryl closure Steri-Strips applied urine was clear at the end of the procedure sponge management counts correct I attest to the content of the Intraoperative Record and any orders documented therein. Any exceptions are noted below.
[2019-07-10 11:28] LABS: Base Excess Cord Arterial Bld -0.1 mEq/L (-9-1.8); CO2 Cord Arterial Blood 57 mmHg (39.1-73.5); HCO3 Cord Arterial Blood 28 mmol/L (19.7-28.5); PO2 Cord Arterial Blood 12.3 % (4.1-31.7)
[2019-07-10 11:38] LABS: Base Excess Cord Venous Blood -0.6 mEq/L (-7.7-1.9); Cord Venous Blood HCO3 25 mmol/L (18.4-26.8); Cord Venous Blood PCO2 46 mmHg (30.4-57.2); Cord Venous Blood PO2 23 mmHg (14.1-43.3); Cord Venous Blood pH 7.36 (7.20-7.44)
[2019-07-10 11:39] LABS: Oxygen Sat Cord Arterial Blood < 60.0 % (<60)
[2019-07-10 11:40] LABS: O2 Saturation Cord Venous Bld < 60.0 % (<68)
[2019-07-10] MEDS: OXYTOCIN 20 UNITS in LACTATED RINGER'S 1,000 ML IV SCH ×3 (12:19→21:45)
--- NOTE | 2019-07-10 12:30 | Anesthesiology Progress Note ---
Date of Service July 10, 2019 Anesthesia Post Procedure Vital Signs Vital Signs: Temp Pulse Resp BP Pulse Ox 07/10/19 12:27 68 129/76 96 07/10/19 12:22 72 96 07/10/19 12:17 70 20 129/82 95 07/10/19 12:12 66 97 07/10/19 12:10 60 111/58 L 07/10/19 12:07 65 20 97 07/10/19 12:02 77 96 07/10/19 11:57 74 20 120/71 94 07/10/19 11:52 66 96 07/10/19 11:47 82 20 117/67 97 07/10/19 11:42 64 95 07/10/19 11:37 70 18 123/65 97 07/10/19 11:32 67 95 07/10/19 11:27 36.4 C L 72 16 117/64 95 07/10/19 11:22 70 92 07/10/19 11:17 79 95 07/10/19 11:16 79 119/63 07/10/19 08:03 36.3 C L 20 07/10/19 07:34 85 135/79 Transfer of Care Handoff Completed per policy Notes Mental Status: alert / awake / arousable and participated in evaluation Nausea / Vomiting: adequately controlled Pain: adequately controlled Airway Patency, RR, SpO2: stable & adequate BP & HR: stable & adequate Hydration State: stable & adequate Neuraxial Anesthesia: was administered and sensory block is resolving Anesthetic Complications: no major complications apparent and Pt Satisfied with anesthetic care
[2019-07-10] MEDS ORDERED: MAGNESIUM HYDROXIDE SUSP 30 ML UDC PO PRN (13:37)
[2019-07-10] MEDS ORDERED: HYDROCORTISONE ACETATE 25 MG SUPP PR PRN (13:37)
[2019-07-10] MEDS ORDERED: BENZOCAINE 20% AER SPR 82.5 GM CAN EXT PRN (13:37)
[2019-07-10] MEDS ORDERED: SENNA 8.6 MG TAB PO PRN (13:37)
[2019-07-10] MEDS ORDERED: DIPHTHERIA/TETANUS/PERTUSSIS 0.5 ML SYR/VIAL IM ONE (13:37)
[2019-07-10] MEDS ORDERED: SUPERCREAM 0.870% 15 GM JAR EXT PRN (13:37)
[2019-07-10] MEDS ORDERED: ONDANSETRON INJ 2 MG/ML 2 ML VIAL IV PRN (13:39)
[2019-07-10] MEDS ORDERED: DiphenhydrAMINE HCL 50 MG/ML VIAL IV PRN (13:39)
[2019-07-10] MEDS ORDERED: MoRPHine SULFATE PF 1 MG/ML 10 ML AMP/VIAL INT SPINAL ONE (13:39)
[2019-07-10] MEDS ORDERED: NALOXONE HCL 0.08 MG in SYRINGE 1.8 ML IV PRN (13:39)
[2019-07-10] MEDS ORDERED: NALBUPHINE HCL INJ 10 MG/ML AMP IV PRN (13:39)
[2019-07-10] MEDS ORDERED: NALOXONE HCL 0.4 MG/1 ML VIAL/CARP IV PRN (13:39)
[2019-07-10] MEDS ORDERED: NALOXONE HCL 1 MG in SODIUM CHLORIDE 0.9% 1000ML 1,000 ML IV PRN (13:39)
[2019-07-10] MEDS ORDERED: LACTATED RINGER'S 500 ML IV PRN (13:39)
[2019-07-10] MEDS ORDERED: HYDROmorphone INJ 0.5 MG/0.5 ML SYR IV PRN (13:39)
[2019-07-10] MEDS ORDERED: ePHEDrine sulfate 50 MG/ML AMP IV PRN (13:39)
[2019-07-10] MEDS ORDERED: DC INTRASPINAL MORPHINE SCH (13:45)
[2019-07-10] MEDS ORDERED: NO NARCOTICS OR SEDATIVES SCH (13:45)
[2019-07-10] MEDS ORDERED: SODIUM CHLORIDE 0.9% 1000ML 1,000 ML IV SCH (13:45)
[2019-07-10] MEDS: KETOROLAC 30 MG/ML VIAL IV PRN ×2 (14:03→20:25)
[2019-07-10] MEDS: SIMETHICONE 80 MG CHEW PO SCH ×3 (15:40→20:25)
[2019-07-10] MEDS ORDERED: Nursing to Pharmacy Communication ONE (15:50)
[2019-07-10] MEDS: DOCUSATE SODIUM 100 MG CAP PO SCH (20:25)
[2019-07-10] MEDS: ACETAMINOPHEN 1000 MG/100 ML IV IV PRN (20:26)
[2019-07-11] MEDS: ACETAMINOPHEN 1000 MG/100 ML IV IV PRN (04:21)
[2019-07-11] MEDS: KETOROLAC 30 MG/ML VIAL IV PRN (04:22)
[2019-07-11] MEDS ORDERED: KETOROLAC 30 MG/ML VIAL IV PRN ×2 (04:30→07:40)
[2019-07-11] MEDS ORDERED: PROMETHAZINE HCL 25 MG in SODIUM CHLORIDE 0.9% 50 ML IV PRN ×2 (04:30→07:40)
[2019-07-11] MEDS ORDERED: ZOLPIDEM TARTRATE 5 MG TAB PO PRN ×2 (04:30→07:40)
[2019-07-11] MEDS ORDERED: ONDANSETRON INJ 2 MG/ML 2 ML VIAL IV PRN ×2 (04:30→07:40)
[2019-07-11] MEDS ORDERED: DiphenhydrAMINE HCL 50 MG/ML VIAL IV PRN ×2 (04:30→07:40)
[2019-07-11] MEDS ORDERED: MEPERIDINE HCL 50 MG/ML CARP IV PRN ×2 (04:30→07:40)
[2019-07-11 06:39] LABS: Basophils # (auto) 0.01 K/uL (0-0.2); Basophils % (auto) 0.1 %; Eosinophils # (auto) 0.03 K/uL (0-0.5); Eosinophils % (auto) 0.3 %; Hematocrit (blood only) 38.1 % (37-47); Hemoglobin 12.8 g/dL (12.0-16.0); Immature Granulocytes # (auto) 0.04 K/uL (0.00-0.02); Immature Granulocytes % (auto) 0.4 %; Lymphocytes # (auto) 1.06 K/uL (1.2-3.4); Lymphocytes % (auto) 9.8 %; Mean Corpuscular Hemoglobin 29.4 pg (25-34); Mean Corpuscular Hgb Conc 33.6 g/dL (32-36); Mean Corpuscular Volume 87.6 fL (80-100); Mean Platelet Volume 11.3 fL (7.4-10.4); Monocytes # (auto) 1.06 K/uL (0.11-0.59); Monocytes % (auto) 9.8 %; Neutrophils # (auto) 8.61 K/uL (1.4-6.5); Neutrophils % (auto) 79.6 %; Platelet Count 154 K/uL (130-400); RDW Coefficient of Variation 13.1 % (11.5-14.5); Red Blood Count 4.35 M/uL (4.2-5.4); White Blood Count 10.81 K/uL (4.8-10.8)
--- NOTE | 2019-07-11 06:40 | Obstetrical Progress Note ---
Date of Service <Annamaria Petit DO - Last Filed: 07/11/19 07:18> July 11, 2019 Assessment & Plan <Annamaria Petit DO - Last Filed: 07/11/19 07:18> (1) Encounter for care and examination after delivery: 28 yo F PPD #1 following section delivery at 39w4d, doing well this morning but still with pain that improves with PRN pain medications. C section delivery - POD #1 - Will continue routine care. - Following d/c will have f/u in 6 weeks. - Blood type O+, Rubella immune. Subjective <Annamaria Petit - Last Filed: 07/11/19 07:18> Cassandra is a 28 yo female ; POD # 1 following section delivery at 39w4d; having some pain this AM in lower abdomen; still with rivero, has not yet ambulated, passing gas but no BM; tolerating meals overnight. Some persistent spotting this morning but improved from yesterday. 24 Hour I/Os: Intake: 3404mL Output: 3300mL Review of Systems Constitutional: denies fever, chills, sweats, headache Respiratory: denies SOB, difficulty breathing Cardiac: denies CP, chest palpitations, chest pressure Breast: denies breast pain : denies dysuria Physical Exam <Annamaria Petit DO - Last Filed: 07/11/19 07:18> General: patient is alert and oriented, in NAD Cardiac: +S1/S2, no murmurs rubs or gallops Respiratory: lungs CTA b/l, anteriorly and posteriorly, no wheezes rales or rhonchi, no increased work of breathing, symmetric chest rise, no respiratory distress Abdomen: soft, NT, +bowel sounds Uterus: uterine fundus firm and palpable below the level of the umbilicus. Incision intact, non-tender, non-erythematous, no weeping from incision site Lower Extremities: no LE edema or swelling, no deep calf pain, Aly's sign negative b/l Results & Data <Annamaria Petit - Last Filed: 07/11/19 07:18> Vital Signs (Past 12 Hours) Vital Signs Temp Pulse Resp BP Pulse Ox 07/11/19 04:30 18 95 07/11/19 04:15 36.9 C 76 18 121/81 95 07/11/19 04:00 18 94 07/11/19 03:00 18 92 07/11/19 02:00 18 95 07/11/19 01:00 18 94 07/11/19 00:15 36.7 C 74 18 111/73 94 07/11/19 00:00 18 94 07/10/19 23:00 18 94 07/10/19 22:00 18 92 07/10/19 21:00 18 94 07/10/19 20:15 36.5 C 80 18 123/76 96 07/10/19 20:00 18 96 07/10/19 19:00 18 94 Laboratory Results Laboratory Results - last 24 hr 07/10/19 07/10/19 07/10/19 07:44 07:44 10:39 WBC 13.26 H RBC 4.76 Hgb 14.4 Hct 41.0 MCV 86.1 MCH 30.3 MCHC 35.1 RDW Std Deviation 40.6 RDW Coeff of Terence 12.9 Plt Count 200 MPV 11.6 H Immature Gran % (Auto) 0.5 Neut % (Auto) 74.9 Lymph % (Auto) 15.1 [place] % (Auto) 8.9 Eos % (Auto) 0.5 Baso % (Auto) 0.1 Immature Gran # (Auto) 0.07 H Neut # (Auto) 9.94 H Lymph # (Auto) 2.00 [place] # (Auto) 1.18 H Eos # (Auto) 0.06 Baso # (Auto) 0.01 Cord ABG pH 7.30 Cord ABG pCO2 57 Cord ABG pO2 12.3 Cord ABG HCO3 28 Cord ABG Base Excess -0.1 Cord ABG O2 Sat < 60.0 Cord VBG pH Cord VBG pCO2 Cord VBG pO2 Cord VBG HCO3 Cord VBG Base Excess Cord VBG O2 Sat Barometric Pressure 738.6 Blood Gas Comments G[place] Blood Type O Positive Antibody Screen NEGATIVE 07/10/19 07/11/19 10:39 06:29 WBC 10.81 H RBC 4.35 Hgb 12.8 Hct 38.1 MCV 87.6 MCH 29.4 MCHC 33.6 RDW Std Deviation 42.0 RDW Coeff of Terence 13.1 Plt Count 154 MPV 11.3 H Immature Gran % (Auto) 0.4 Neut % (Auto) 79.6 Lymph % (Auto) 9.8 [place] % (Auto) 9.8 Eos % (Auto) 0.3 Baso % (Auto) 0.1 Immature Gran # (Auto) 0.04 H Neut # (Auto) 8.61 H Lymph # (Auto) 1.06 L [place] # (Auto) 1.06 H Eos # (Auto) 0.03 Baso # (Auto) 0.01 Cord ABG pH Cord ABG pCO2 Cord ABG pO2 Cord ABG HCO3 Cord ABG Base Excess Cord ABG O2 Sat Cord VBG pH 7.36 Cord VBG pCO2 46 Cord VBG pO2 23 Cord VBG HCO3 25 Cord VBG Base Excess -0.6 Cord VBG O2 Sat < 60.0 Barometric Pressure 738.6 Blood Gas Comments G[place] Blood Type Antibody Screen Medications Administered Current Medications Acetaminophen (Ofirmev) 1,000 mg IV Q8 PRN PRN Reason: Pain Stop: 08/09/19 13:38 Last Admin: 07/11/19 04:21 Dose: 1,000 mg Documented by: Benzocaine (Dermoplast Pain Relieving [place]) 1 appln EXT UD PRN PRN Reason: use on skin as needed Stop: 08/09/19 13:36 Bisacodyl (Dulcolax) 5 mg PO 1999 [facility] Stop: 07/11/19 20:01 Bisacodyl (Dulcolax) 10 mg [place] PRN PRN PRN Reason: Constipation Stop: 08/11/19 11:06 Cocaine HCl (Supercream 0.870%) 1 gm EXT UD PRN PRN Reason: hemmorrhoidal inflammation Stop: 07/24/19 13:36 Diphenhydramine HCl (Benadryl) 25 mg IV QID PRN PRN Reason: Itching Stop: 08/10/19 04:29 Diphenhydramine HCl (Benadryl Capsule) 25 mg PO QID PRN PRN Reason: Itching Stop: 08/10/19 04:29 Docusate Sodium (Colace) 100 mg PO DAILY@08, [facility] Stop: 08/09/19 20:59 Last Admin: 07/10/19 20:25 Dose: 100 mg Documented by: Hydrocortisone (Anusol Hc) 25 mg [place] BID PRN PRN Reason: Hemorrhoids Stop: 08/09/19 13:36 Promethazine HCl 25 mg/ Sodium (Chloride) 51 mls @ 204 mls/hr IV Q4H PRN PRN Reason: Nausea And Vomiting Stop: 08/10/19 04:29 Ibuprofen (Motrin) 600 mg PO Q4H PRN PRN Reason: Pain Stop: 08/09/19 13:36 Ketorolac Tromethamine (Toradol) 30 mg IV Q6H PRN PRN Reason: Pain Stop: 07/16/19 04:29 Magnesium Hydroxide (Milk Of Magnesia) 30 ml PO HS PRN PRN Reason: Constipation Stop: 08/09/19 13:36 Meperidine HCl (Demerol) 50 - 75 mg IV Q4H PRN PRN Reason: Pain Stop: 07/25/19 04:29 Ondansetron HCl (Zofran) 4 mg IV Q4H PRN PRN Reason: Nausea And Vomiting Stop: 08/10/19 04:29 Oxycodone/Acetaminophen (Percocet 5mg/325mg) 1 - 2 tab PO Q4H PRN PRN Reason: Pain Stop: 07/25/19 04:29 Prenat Multivit/Masking Machine Operator/Iron/Folic Ac ( Vitamin) 1 tab PO DAILY@08 ANA PAULA Stop: 08/10/19 07:59 Saccharomyces Boulardii (Florastor) 250 mg PO DAILY ANA PAULA Stop: 08/10/19 08:59 Sennosides (Senokot) 17.2 mg PO HS PRN PRN Reason: Constipation Stop: 08/09/19 13:36 Simethicone (Mylicon) 80 mg PO DAILY@08,13,17,21 ANA PAULA Stop: 08/09/19 13:36 Last Admin: 07/10/19 20:25 Dose: 80 mg Documented by: Zolpidem Tartrate (Ambien) 5 mg PO HS PRN PRN Reason: Sleep Stop: 08/10/19 04:29 <Sussy Starr MD, FACOG - Last Filed: 07/11/19 07:43> Co-Signing Physician Notes Resident Physician Supervision Note: I was present with Dr. Petit during the history and exam. I discussed the case with the resident and agree with the findings and plan as documented in the note. Any exceptions or clarifications are listed here: [None] Documented By: Sussy Starr MD, FACOG Resident Activity Tracking <Annamaria Petit, DO - Last Filed: 07/11/19 07:18> Resident Involvement: Resident Care Provided Care Provided: Adult Hospital Medicine
[2019-07-11] MEDS ORDERED: OXYCODONE/ACETAMINOPHEN 5mg/325mg TAB PO PRN (07:40)
[2019-07-11] MEDS: SIMETHICONE 80 MG CHEW PO SCH ×4 (08:34→20:40)
[2019-07-11] MEDS: PRENATAL VITAMIN 1 TAB PO SCH (08:34)
[2019-07-11] MEDS: DOCUSATE SODIUM 100 MG CAP PO SCH ×2 (08:34→20:41)
[2019-07-11] MEDS: IBUPROFEN 600 MG TAB PO PRN ×4 (08:35→21:34)
[2019-07-11] MEDS: OXYCODONE/ACETAMINOPHEN 5mg/325mg TAB PO PRN ×4 (08:35→21:34)
[2019-07-11] MEDS ORDERED: LACTATED RINGER'S 1,000 ML IV ONE (10:28)
--- NOTE | 2019-07-11 10:39 | Anesthesiology Progress Note ---
Date of Service July 11, 2019 Anesthesia Post Procedure Vital Signs Vital Signs: Temp Pulse Pulse Resp BP BP Pulse Ox 07/11/19 07:50 36.4 C L 80 18 127/88 97 07/11/19 04:30 18 95 07/11/19 04:15 36.9 C 76 18 121/81 95 07/11/19 04:00 18 94 07/11/19 03:00 18 92 07/11/19 02:00 18 95 07/11/19 01:00 18 94 07/11/19 00:15 36.7 C 74 18 111/73 94 07/11/19 00:00 18 94 07/10/19 23:00 18 94 07/10/19 22:00 18 92 07/10/19 21:00 18 94 07/10/19 20:15 36.5 C 80 18 123/76 96 07/10/19 20:00 18 96 07/10/19 19:00 18 94 07/10/19 18:00 18 98 07/10/19 17:00 18 98 07/10/19 16:15 36.6 C 67 67 18 136/86 136/86 97 07/10/19 16:00 18 97 07/10/19 14:20 36.5 C 70 19 118/76 98 07/10/19 14:02 82 96 07/10/19 13:57 81 112/70 98 07/10/19 13:52 64 97 07/10/19 13:47 63 118/73 98 07/10/19 13:42 69 96 07/10/19 13:37 61 113/72 96 07/10/19 13:32 79 98 07/10/19 13:27 63 20 107/67 97 07/10/19 13:22 66 96 07/10/19 13:17 61 115/79 97 07/10/19 13:12 75 97 07/10/19 13:07 63 114/74 98 07/10/19 13:02 68 96 07/10/19 12:57 65 20 109/74 97 07/10/19 12:52 54 L 96 07/10/19 12:47 68 110/72 96 07/10/19 12:42 71 96 07/10/19 12:37 64 119/77 97 07/10/19 12:32 75 96 07/10/19 12:28 36.0 C L 20 07/10/19 12:27 68 20 129/76 96 07/10/19 12:22 72 96 07/10/19 12:17 70 20 129/82 95 07/10/19 12:12 66 97 07/10/19 12:10 60 111/58 L 07/10/19 12:07 65 20 97 07/10/19 12:02 77 96 07/10/19 11:57 74 20 120/71 94 07/10/19 11:52 66 96 07/10/19 11:47 82 20 117/67 97 07/10/19 11:42 64 95 07/10/19 11:37 70 18 123/65 97 07/10/19 11:32 67 95 07/10/19 11:27 36.4 C L 72 16 117/64 95 07/10/19 11:22 70 92 07/10/19 11:17 79 95 07/10/19 11:16 79 119/63 Pulse Ox 07/11/19 07:50 07/11/19 04:30 07/11/19 04:15 07/11/19 04:00 07/11/19 03:00 07/11/19 02:00 07/11/19 01:00 07/11/19 00:15 07/11/19 00:00 07/10/19 23:00 07/10/19 22:00 07/10/19 21:00 07/10/19 20:15 07/10/19 20:00 07/10/19 19:00 07/10/19 18:00 07/10/19 17:00 07/10/19 16:15 97 07/10/19 16:00 07/10/19 14:20 98 07/10/19 14:02 07/10/19 13:57 07/10/19 13:52 07/10/19 13:47 07/10/19 13:42 07/10/19 13:37 07/10/19 13:32 07/10/19 13:27 07/10/19 13:22 07/10/19 13:17 07/10/19 13:12 07/10/19 13:07 07/10/19 13:02 07/10/19 12:57 07/10/19 12:52 07/10/19 12:47 07/10/19 12:42 07/10/19 12:37 07/10/19 12:32 07/10/19 12:28 07/10/19 12:27 07/10/19 12:22 07/10/19 12:17 07/10/19 12:12 07/10/19 12:10 07/10/19 12:07 07/10/19 12:02 07/10/19 11:57 07/10/19 11:52 07/10/19 11:47 07/10/19 11:42 07/10/19 11:37 07/10/19 11:32 07/10/19 11:27 07/10/19 11:22 07/10/19 11:17 07/10/19 11:16 Pain Intensity Bilateral Abdomen: Pain Intensity: 6 Transfer of Care Handoff Completed per policy Notes Mental Status: alert / awake / arousable and participated in evaluation Patient Amnestic to Procedure: Yes Nausea / Vomiting: adequately controlled Pain: adequately controlled Airway Patency, RR, SpO2: stable & adequate BP & HR: stable & adequate Hydration State: stable & adequate Neuraxial Anesthesia: was administered and sensory block resolved Anesthetic Complications: no major complications apparent (Pt c/o mild headache. States its worse when upright and active and relieved by recumbency. Discussed with pt and her that complaint is consistent with post-dural puncture headache. I described to her and recommended conservative treatment with hydration, caffeine and analgesics. Will f/u.) Notes:
[2019-07-11] MEDS: SACCHAROMYCES BOULARDII 250 MG CAP PO SCH (12:37)
--- NOTE | 2019-07-11 17:22 | Anesthesiology Progress Note ---
Date of Service July 11, 2019 Pt seen resting in bed. States headache has significantly improved compared to earlier today. Imp: PDPH, mild, resolving. Plan: Encourage p.o fluid intake. Re-consult if needed. Anesthesia Post Procedure Vital Signs Vital Signs: Temp Pulse Resp BP Pulse Ox 07/11/19 11:00 36.6 C 71 18 101/67 99 07/11/19 07:50 36.4 C L 80 18 127/88 97 07/11/19 04:30 18 95 07/11/19 04:15 36.9 C 76 18 121/81 95 07/11/19 04:00 18 94 07/11/19 03:00 18 92 07/11/19 02:00 18 95 07/11/19 01:00 18 94 07/11/19 00:15 36.7 C 74 18 111/73 94 07/11/19 00:00 18 94 07/10/19 23:00 18 94 07/10/19 22:00 18 92 07/10/19 21:00 18 94 07/10/19 20:15 36.5 C 80 18 123/76 96 07/10/19 20:00 18 96 07/10/19 19:00 18 94 07/10/19 18:00 18 98 Pain Intensity Bilateral Abdomen: Pain Intensity: 6
[2019-07-11] MEDS ORDERED: bisacodyL 5 MG TABEC PO SCH (20:00)
[2019-07-12] MEDS: IBUPROFEN 600 MG TAB PO PRN ×3 (05:19→13:16)
[2019-07-12] MEDS: OXYCODONE/ACETAMINOPHEN 5mg/325mg TAB PO PRN ×3 (05:20→13:17)
--- NOTE | 2019-07-12 06:11 | Obstetrical Progress Note ---
Date of Service <Annamaria Petit DO - Last Filed: 07/12/19 07:03> July 12, 2019 Assessment & Plan <Annamaria Petit DO - Last Filed: 07/12/19 07:03> (1) Encounter for care and examination after delivery: 28 yo F POD #2 following section delivery at 39w4d, doing well this morning, and pain better controlled today. C section delivery - POD #2. - For discharge today. - Following d/c will have f/u in 6 weeks. - Blood type O+, Rubella immune. Subjective <Annamaria Petit DO - Last Filed: 07/12/19 07:03> Cassandra is a 28 yo female ; POD # 2 following section delivery at 39w4d; doing well this AM; no abdominal cramping/pain; voiding well, passing gas but no BM; tolerating meals overnight, able to ambulate some within the room. Some persistent spotting this morning but improved from yesterday. Would like to go home later today if possible. Reports her pain is much better than yesterday as she is asking for pain medication more often. 24 Hour I/Os: Intake: 1000mL Output: 1900mL Review of Systems Constitutional: denies fever, chills, sweats, headache Respiratory: denies SOB, difficulty breathing Cardiac: denies CP, chest palpitations, chest pressure Breast: denies breast pain : denies dysuria Physical Exam <Annamaria Petit DO - Last Filed: 07/12/19 07:03> General: patient is alert and oriented, in NAD Cardiac: +S1/S2, no murmurs rubs or gallops Respiratory: lungs CTA b/l, anteriorly and posteriorly, no wheezes rales or rhonchi, no increased work of breathing, symmetric chest rise, no respiratory distress Abdomen: soft, NT, +bowel sounds Uterus: uterine fundus firm and palpable below the level of the umbilicus. Incision intact, non-tender, non-erythematous, no weeping from incision site Lower Extremities: no LE edema or swelling, no deep calf pain, Aly's sign negative b/l Results & Data <Annamaria Petit - Last Filed: 07/12/19 07:03> Vital Signs (Past 12 Hours) Vital Signs Temp Pulse Resp BP 07/12/19 05:30 75 18 114/79 07/11/19 23:15 36.5 C 77 18 132/91 Laboratory Results Laboratory Results - last 24 hr 07/11/19 06:29 WBC 10.81 H RBC 4.35 Hgb 12.8 Hct 38.1 MCV 87.6 MCH 29.4 MCHC 33.6 RDW Std Deviation 42.0 RDW Coeff of Terence 13.1 Plt Count 154 MPV 11.3 H Immature Gran % (Auto) 0.4 Neut % (Auto) 79.6 Lymph % (Auto) 9.8 [place] % (Auto) 9.8 Eos % (Auto) 0.3 Baso % (Auto) 0.1 Immature Gran # (Auto) 0.04 H Neut # (Auto) 8.61 H Lymph # (Auto) 1.06 L [place] # (Auto) 1.06 H Eos # (Auto) 0.03 Baso # (Auto) 0.01 Medications Administered Current Medications Acetaminophen (Ofirmev) 1,000 mg IV Q8 PRN PRN Reason: Pain Stop: 08/09/19 13:38 Last Admin: 07/11/19 04:21 Dose: 1,000 mg Documented by: Benzocaine (Dermoplast Pain Relieving [place]) 1 appln EXT UD PRN PRN Reason: use on skin as needed Stop: 08/09/19 13:36 Bisacodyl (Dulcolax) 10 mg [place] PRN PRN PRN Reason: Constipation Stop: 08/11/19 11:06 Cocaine HCl (Supercream 0.870%) 1 gm EXT UD PRN PRN Reason: hemmorrhoidal inflammation Stop: 07/24/19 13:36 Diphenhydramine HCl (Benadryl) 25 mg IV QID PRN PRN Reason: Itching Stop: 08/10/19 04:29 Diphenhydramine HCl (Benadryl Capsule) 25 mg PO QID PRN PRN Reason: Itching Stop: 08/10/19 04:29 Docusate Sodium (Colace) 100 mg PO DAILY@08,21 ANA PAULA Stop: 08/09/19 20:59 Last Admin: 07/11/19 20:41 Dose: 100 mg Documented by: Hydrocortisone (Anusol Hc) 25 mg [place] BID PRN PRN Reason: Hemorrhoids Stop: 08/09/19 13:36 Promethazine HCl 25 mg/ Sodium (Chloride) 51 mls @ 204 mls/hr IV Q4H PRN PRN Reason: Nausea And Vomiting Stop: 08/10/19 04:29 Ibuprofen (Motrin) 600 mg PO Q4H PRN PRN Reason: Pain Stop: 08/09/19 13:36 Last Admin: 07/12/19 05:19 Dose: 600 mg Documented by: Ketorolac Tromethamine (Toradol) 30 mg IV Q6H PRN PRN Reason: Pain Stop: 07/16/19 04:29 Magnesium Hydroxide (Milk Of Magnesia) 30 ml PO HS PRN PRN Reason: Constipation Stop: 08/09/19 13:36 Meperidine HCl (Demerol) 50 - 75 mg IV Q4H PRN PRN Reason: Pain Stop: 07/25/19 04:29 Ondansetron HCl (Zofran) 4 mg IV Q4H PRN PRN Reason: Nausea And Vomiting Stop: 08/10/19 04:29 Oxycodone/Acetaminophen (Percocet 5mg/325mg) 1 - 2 tab PO Q4H PRN PRN Reason: Pain Stop: 07/25/19 04:29 Last Admin: 07/12/19 05:20 Dose: 1 tab Documented by: [place] Multivit/[place]/Iron/Folic Ac ( Vitamin) 1 tab PO DAILY@08 [facility]CLUDES [facility] Stop: 08/10/19 07:59 Last Admin: 07/11/19 08:34 Dose: 1 tab Documented by: Saccharomyces Boulardii (Florastor) 250 mg PO DAILY COUNT INCLUDES THE [facility] Stop: 08/10/19 08:59 Last Admin: 07/11/19 12:37 Dose: 250 mg Documented by: Sennosides (Senokot) 17.2 mg PO HS PRN PRN Reason: Constipation Stop: 08/09/19 13:36 Simethicone (Mylicon) 80 mg PO DAILY@08,13,17,21 COUNT INCLUDES THE [facility] Stop: 08/09/19 13:36 Last Admin: 07/11/19 20:40 Dose: 80 mg Documented by: Zolpidem Tartrate (Ambien) 5 mg PO HS PRN PRN Reason: Sleep Stop: 08/10/19 04:29 <Keith Porras Jr, MD, FACOG - Last Filed: 07/12/19 08:16> Co-Signing Physician Notes Resident Physician Supervision Note: I was present with Dr. Rivas during the history and exam. I discussed the case with the resident and agree with the findings and plan as documented in the note. Any exceptions or clarifications are listed here: Doing well, desires d/c, instructions and Rx sent. F/U for 6 week pp check Documented By: Keith Porras Jr, MD, FACOG Resident Activity Tracking <Annamaria Petit DO - Last Filed: 07/12/19 07:03> Resident Involvement: Resident Care Provided Care Provided: Adult Hospital Medicine
[2019-07-12 07:33] LABS: Hematocrit (blood only) 40.1 % (37-47); Hemoglobin 13.5 g/dL (12.0-16.0)
[2019-07-12] MEDS: SACCHAROMYCES BOULARDII 250 MG CAP PO SCH (08:25)
[2019-07-12] MEDS: PRENATAL VITAMIN 1 TAB PO SCH (08:25)
[2019-07-12] MEDS: SIMETHICONE 80 MG CHEW PO SCH ×2 (08:25→12:17)
[2019-07-12] MEDS: DOCUSATE SODIUM 100 MG CAP PO SCH (08:25)
[2019-07-12] MEDS ORDERED: bisacodyL 10 MG SUPP PR PRN (11:07)
--- NOTE | 2019-07-13 13:23 | Discharge Summary ---
Date of Service July 13, 2019 Admission Exam (Per Admitting) Constitutional WD/WN, vitals as above Respiratory normal respiratory effort, lungs clear to auscultation Cardiovascular RRR, no murmur, no edema Gastrointestinal (Abdomen) normal bowel sounds, soft, nontender, no hepatosplenomegaly incision clean Discharge Data Consultations 07/10/19 07:30 Consult Anesthesiology Stat Procedures Performed Operation Date: 07/10/19 09:00 Actual Procedures p Section in LD - J. Mac Starr MD, FACOG Hospital Course (1) Encounter for care and examination after delivery: seen by OB team and met discharge criteria. Plan follow up in 6 weeks
== END 2019-07-12 14:35 | disposition home or self-care (01) | DRG 788 ==
LOC: 4S1 07:23 → EDSTATUS 07:30 → 4S2 14:49